=== PATIENT | female | born 1960 | race Asian ===

== ENCOUNTER 2017-01-14 00:07 | Emergency (ER) | payer MEDICARE, OTHER ==
[~2017-01-14] VITALS: Ht 165.1 cm; Wt 80.0 kg
[2017-01-14 00:15] VITALS: Ht 165.1 cm; Wt 80.0 kg
--- NOTE | 2017-01-14 01:39 | ERD ---
ER Documentation Chief Complaint Chief Complaint Painful Urination, Blood in the urine. x 2 days HPI 56-year-old female presents here to emergency department for complaints of right groin pain, passing out some reddish tissue, has some hematuria after falling yesterday. Patient fell forward landed on the right head of the abdomen. Patient was worried, wants to be checked here in the emergency department. Patient does complain of pain upon urination and after urination, throbbing pain, 6/10 scale, not better or does anything. Patient denies any fever or chills. Patient denies any incontinence. ROS All systems reviewed and are negative except as per history of present illness. Medications Home Meds Active Scripts Phenazopyridine Hcl* (Pyridium*) 200 Mg Tab, 200 MG PO TID Y for URINARY PAIN, # 6 TAB Prov:RE VERMA NP 01/14/17 Cephalexin* (Keflex*) 500 Mg Capsule, 500 MG PO QID for 10 Days, CAP Prov:RE VERMA NP 01/14/17 Reported Medications [none] Unknown Strength No Conflict Check 01/14/17 Allergies Allergies: Coded Allergies: No Known Allergy (Unverified , 01/14/17) PMhx/Soc History of Surgery: Yes (back, ankle, ) Hx Miscellaneous Medical Probl: Yes (lupus, rheumatoid arthritis, fibromyalgia) Hx Alcohol Use: No Hx Substance Use: No Hx Tobacco Use: No Smoking Status: Never smoker FmHx Family History: No coronary disease, No diabetes, No other Physical Exam Vitals Vital Signs Date Time Temp Pulse Resp B/P Pulse Ox O2 Delivery O2 Flow Rate FiO2 01/14/17 00:15 98.3 90 20 143/92 99 Physical Exam GENERAL: The patient is well developed and appropriate for usual state of health, in no apparent distress. CHEST: Clear to auscultation bilaterally. There are no rales, wheezes or rhonchi. HEART: Regular rate and rhythm. No murmurs, clicks, rubs or gallops. No S3 or S4. ABDOMEN: Soft, nontender and nondistended. Good bowel sounds. No rebound or guarding. No gross peritonitis. No gross organomegaly or masses. No Hunter sign or McBurney point tenderness. BACK: No midline or flank tenderness. EXTREMITIES: Equal pulses bilaterally. There is no peripheral clubbing, cyanosis or edema. No focal swelling or erythema. Full range of motion. Grossly neurovascularly intact. NEURO: Alert and oriented. Cranial nerves 2-12 intact. Motor strength in all 4 extremities with 5/5 strength. Sensation grossly intact. Normal speech and gait. SKIN: There is no apparent rash or petechia. The skin is warm and dry. HEMATOLOGIC AND LYMPHATIC: There is no evidence of excessive bruising or lymphedema. No gross cervical, axillary, or inguinal lymphadenopathy. Results 24 hrs Laboratory Tests Test 01/14/17 02:14 Bedside Urine pH (LAB) 6.0 Bedside Urine Protein (LAB) Negative Bedside Urine Glucose (UA) Negative Bedside Urine Ketones (LAB) Trace Bedside Urine Blood Negative Bedside Urine Nitrite (LAB) Negative Bedside Urine Leukocyte Esterase (L 1+ Procedures/MDM Medical Decision Making: Patients symptoms are consistent with urinary tract infection. There is low suspicion for pyelonephritis. There is low suspicion for abdominal emergencies at this time. Patients abdominal exam is normal. There is low suspicion for sepsis. Patient appears well and is hemodynamically stable. Disposition: Home. Stable Prescription Keflex, Pyridium Instructions: Patient is advised to take medications as prescribed. Patient is advised to rest, increase fluid intake and do good perineal hygiene. Patient is advised that if symptoms are worse, severe abdominal pain, uncontrolled vomiting , high fever, severe flank pain, worst signs and symptoms, to return to the emergency department immediately. Otherwise, patient can follow up with primary care doctor in 5-7 days. Disclaimer: Inadvertent spelling and grammatical errors are likely due to EHR/ dictation software use and do not reflect on the overall quality of patient care. Also, please note that the electronic time recorded on this note does not necessarily reflect the actual time of the patient encounter. Departure Condition: Stable Additional Instructions: Patient is advised to take medications as prescribed. Patient is advised to rest, increase fluid intake and do good perineal hygiene. Patient is advised that if symptoms are worse, severe abdominal pain, uncontrolled vomiting, high fever, severe flank pain, worst signs and symptoms, to return to the emergency department immediately. Otherwise, patient can follow up with primary care doctor in 5-7 days. RE VERMA NP Jan 14, 2017 01:39
[2017-01-14 02:14] LABS: URINE BLOOD (Dip) POC Negative (NEGATIVE)
[2017-01-14] MEDS ORDERED: PHEN-538 PO (02:33)
[2017-01-14] MEDS ORDERED: CEPH-443 PO (02:33)
[2017-01-14 03:39] LABS: BASOPHILS % 0.4 % (0.0-2.0); EOSINOPHILS # 0.1 10^3/ul (0.0-0.5); EOSINOPHILS % 1.6 % (0.0-7.0); HEMATOCRIT 38.7 % (37.0-47.0); HEMOGLOBIN 13.6 g/dl (12.0-16.0); LYMPHOCYTES # 2.6 10^3/ul (0.8-2.9); LYMPHOCYTES % 35.2 % (15.0-51.0); MEAN CORPUSCULAR HEMOGLOBIN 33.5 pg (29.0-33.0); MEAN CORPUSCULAR HGB CONC 35.1 g/dl (32.0-37.0); MEAN CORPUSCULAR VOLUME 95.3 fl (82.0-101.0); MEAN PLATELET VOLUME 9.1 fl (7.4-10.4); MONOCYTE # 0.7 10^3/ul (0.3-0.9); MONOCYTES % 8.9 % (0.0-11.0); NEUTROPHIL # 3.9 10^3/ul (1.6-7.5); NEUTROPHILS % 53.1 % (39.0-77.0); PLATELET COUNT 390 10^3/UL (140-415); RED BLOOD COUNT 4.06 10^6/ul (4.20-5.40); RED CELL DISTRIBUTION WIDTH 14.6 % (11.5-14.5); WHITE BLOOD COUNT 7.4 10^3/ul (4.8-10.8)
[2017-01-14 03:49] LABS: ADD UMIC YES; UR ASCORBIC ACID 40 mg/dL (NEGATIVE); UR BACTERIA MANY /HPF (NONE SEEN); UR BILIRUBIN (Dip) NEGATIVE (NEGATIVE); UR BLOOD (Dip) NEGATIVE (NEGATIVE); UR CLARITY CLEAR (CLEAR); UR COLOR YELLOW (YELLOW); UR GLUCOSE (Dip) NEGATIVE (NEGATIVE); UR KETONES (Dip) NEGATIVE (NEGATIVE); UR LEUKOCYTE ESTERASE (Dip) 3+ Leu/ul (NEGATIVE); UR NITRITE (Dip) NEGATIVE (NEGATIVE); UR RBC 3 /HPF (0-5); UR SPECIFIC GRAVITY (Dip) 1.016 (1.003-1.030); UR TOTAL PROTEIN (Dip) NEGATIVE (NEGATIVE); UR UROBILINOGEN (Dip) NEGATIVE (NEGATIVE)
[2017-01-14] MEDS ORDERED: IOHEXOL 300MG/ML 150 ML BTL ONE (03:54)
[2017-01-14] MEDS ORDERED: SOD CHLORIDE 0.9% 100 ML ONE (03:54)
[2017-01-14 04:01] LABS: ALBUMIN 4.3 g/dl (3.3-4.9); ALBUMIN/GLOBULIN RATIO 1.38; BILIRUBIN,INDIRECT 0.1 mg/dl (0-1.1); BILIRUBIN,TOTAL 0.1 mg/dl (0.2-1.3); CALCIUM 9.6 mg/dl (8.4-10.2); CREATININE 0.99 mg/dl (0.44-1.00); POTASSIUM 3.8 mmol/L (3.5-5.1); TOTAL PROTEIN 7.4 g/dl (6.1-8.1)
--- NOTE | 2017-01-14 04:40 | RADRPT ---
PROCEDURE: CT Abdomen and pelvis with contrast CLINICAL INDICATION: Abdominal pain TECHNIQUE: Spiral CT images through the abdomen and pelvis without administration of oral and duri ng administration of 100 cc of Omnipaque-300 contrast material. Multiplanar reconstructions. The t otal exam CTDI equals 7.96 mGy and the total exam DLP equals 436.55 mGy-cm. One or more of the [facility] dose reduction techniques were used: automated exposure control, adjustment of the mA and/or kV according to patient size, or use of iterative reconstruction technique. DICOM images are available . COMPARISON: None. FINDINGS: Lower thorax: Slight dependent atalectasis of the lung bases is seen.. Liver: The liver is unremarkable in appearance. Biliary: The gallbladder is contracted.. No biliary ductal dilatation is seen. The common bile duct is top normal in diameter and 6 mm. Spleen: The spleen is unremarkable in appearance Adrenal glands: Unremarkable in appearance. No focal nodule.. Genitourinary: No hydronephrosis or renal calculi.. Minimal prominence of the urinary bladder wall. No definite mass or stone.. Pancreas: Unremarkable. No focal mass or inflammatory process. Gastrointestinal Tract: There is no evidence for bowel obstruction, free air, or abscess. The appen juan c is unremarkable in appearance. Large stool burden. Lymph nodes: No adenopathy is seen.. Peritoneal cavity: Unremarkable mesentery and peritoneum.. No mass, edema, or ascites. Reproductive Organs: Surgically absent.. Vascular structures: Mild atherosclerotic vascular calcification.. Musculoskeletal: Degenerative change of the lumbar spine is seen. Disc spacers are seen in place at L4-5 and L5-S1 with transpedicular screws bilaterally from L4-S1. Prior L5 laminectomy. Minimal retr olisthesis at L1-2 and L2-3 and anterolisthesis at L4-5.. IMPRESSION: Large stool burden. Degenerative and postoperative change of the spine.. RPTAT: [facility] Physician Teresa Date Time Electronically viewed and signed by Physician Teresa on 01/14/2017 04:40 LE/
--- NOTE | 2017-01-14 05:19 | RADRPT ---
PROCEDURE: US Pelvis CLINICAL INDICATION: Vaginal bleeding TECHNIQUE: Sonographic evaluation of the pelvis was performed utilizing both transabdominal and tr ansvaginal technique. Curved array transabdominal transducer technique as well as a high frequency endovaginal probe was utilized. Images were reviewed on the high-resolution PACS workstation. COMPARISON: CT 01/14/2017 FINDINGS: The uterus is surgically absent. The ovaries are not visualized secondary to overlying bowel gas. No free fluid or fluid collection is seen. IMPRESSION: 1. Status post hysterectomy. 2. The ovaries are not visualized. 3. No free fluid or fluid collection identified. RPTAT: HH .Rashmi Rivera MD, MD Date Time Electronically viewed and signed by .Rashmi Rivera MD, on 01/14/2017 05:19 .G/
[2017-01-14] MEDS ORDERED: HYDR-906 PO (05:24)
[2017-01-14] MEDS ORDERED: IBUP-1542 PO (05:24)
[2017-01-14 05:47] VITALS: BP 122/76; PULSE 77; RESP 20; TEMP 97.5
== END 2017-01-14 05:49 | disposition home or self-care (01) ==
LOC: FTE 00:07
DX: N39.0 Urinary tract infection, site not specified (principal); S30.1XXA Contusion of abdominal wall, initial encounter; W18.39XA Other fall on same level, initial encounter; Y92.9 Unspecified place or not applicable
CPT/HCPCS: 36415; 74177; 76830; 76856; 80053; 81001; 81003; 83690; 85025; 99285; Q9967